=== PATIENT | male | born 1965 | race Caucasian/White ===

== ENCOUNTER 2017-05-09 09:55 | Emergency (ER) | payer BC ==
[~2017-05-09] VITALS: Ht 182.9 cm; Wt 122.7 kg
[2017-05-09 10:34] VITALS: BP 141/87
== END 2017-05-09 12:06 | disposition home or self-care (01) ==
LOC: ED 12:00
DX: M25.461 Effusion, right knee (principal); M25.561 Pain in right knee
CPT/HCPCS: 99284

== ENCOUNTER → 2017-05-27 | Outpatient (CLI) | payer BC | END | disposition home or self-care (01) | LOC: CFH 08:22 | PROVIDERS: ATTEND Nurse Practitioner Family | DX: S83.231A Complex tear of medial meniscus, current injury, right knee, initial encounter (principal); M94.261 Chondromalacia, right knee; M25.461 Effusion, right knee; X58.XXXA Exposure to other specified factors, initial encounter; Y93.89 Activity, other specified; Y92.89 Other specified places as the place of occurrence of the external cause; Y99.8 Other external cause status ==

== ENCOUNTER 2019-07-04 04:17 | Emergency (ER) | payer BC, OTHER ==
[~2019-07-04] VITALS: Ht 182.9 cm; Wt 115.0 kg
[~2019-07-04 04:17] MED LIST: CHOL10002 PO; SERT100T32 PO; SIMV20TA3 PO
[2019-07-04 05:16] LABS: BASOPHILS # (AUTO) 0.03 x10^3/uL (0-0.1); BASOPHILS % (AUTO) 0 % (0-1); EOSINOPHILS # (AUTO) 0.02 x10^3/uL (0-0.4); EOSINOPHILS % (AUTO) 0 % (1-7); LYMPHOCYTES # (AUTO) 0.84 x10^3/uL (1-3.4); LYMPHOCYTES % (AUTO) 11 % (22-44); MD NO; MEAN CORPUSCULAR HEMOGLOBIN 31.6 pg (27.5-34.5); MEAN CORPUSCULAR HGB CONC 34.2 g/dL (33.2-36.2); MEAN CORPUSCULAR VOLUME 92.5 fL (81-97); MEAN PLATELET VOLUME 7.4 fL (7.4-10.4); MONOCYTES # (AUTO) 0.25 x10^3/uL (0.2-0.8); MONOCYTES % (AUTO) 3 % (2-9); NEUTROPHILS # (AUTO) 6.91 x10^3/uL (1.8-6.8); NEUTROPHILS % (AUTO) 86 % (42-75); PLATELET COUNT 242 x10^3/uL (130-400); RED BLOOD COUNT 5.08 x10^6/uL (4.38-5.82); RED CELL DISTRIBUTION WIDTH 12.9 % (9.4-14.8)
[2019-07-04 05:28] LABS: ALANINE AMINOTRANSFERASE 29 U/L (12-78); ALBUMIN 3.7 g/dL (3.4-5.0); ANION GAP 7 mmol/L (5-15); CALCIUM 8.3 mg/dL (8.5-10.1); CHLORIDE 108 mmol/L (98-107)
[2019-07-04 05:33] LABS: ALKALINE PHOSPHATASE 100 U/L (45-117); BILIRUBIN,TOTAL 0.7 mg/dL (0.2-1.0); TOTAL PROTEIN 7.2 g/dL (6.4-8.2); TROPONIN I < 0.015 ng/mL (0.000-0.045)
[2019-07-04] MEDS ORDERED: KETOROLAC 30 MG/1 ML ONE (05:52)
[2019-07-04 05:56] LABS: MICROSCOPIC INDICATED
[2019-07-04] MEDS ORDERED: KETOROLAC 30 MG/1 ML IVPush ONE (06:00)
[2019-07-04 06:17] LABS: CULTURE INDICATED? NO
[2019-07-04 06:51] VITALS: BP 110/62
--- NOTE | 2019-07-04 06:52 | NUR ---
REPORT TAKEN FROM JUHI MONCADA. PT RESTING ON NATHALIE. NADN. VSS. DENIES NEEDS AT THIS TIME. AWARE OF POC.
--- NOTE | 2019-07-04 07:02 | NUR ---
PA AT BEDSIDE DISCUSSING POC RE: DC. PT GETTING DRESSED NOW.
== END 2019-07-04 07:17 | disposition home or self-care (01) ==
LOC: ED 05:09
DX: N23 Unspecified renal colic (principal); N20.0 Calculus of kidney; E78.00 Pure hypercholesterolemia, unspecified
CPT/HCPCS: 36415; 74176; 80053; 81001; 83690; 84484; 85025; 93005; 96374; 99284; J1885